=== PATIENT | female | born 1970 | race African-American/Black ===

== ENCOUNTER 2017-09-05 11:34 | Emergency (ER) | payer OTHER ==
[2017-09-05 12:31] LABS: ALT (SGPT) 13 U/L (8-55); AST (SGOT) 15 U/L (5-34); Albumin 4.7 g/dL (3.5-5.0); Alkaline Phosphatase 158 U/L (40-150); Anion Gap 15 mmol/L (10-20); BUN (Urea Nitrogen) 14 mg/dL (7.0-18.7); Bilirubin, Total 0.4 mg/dL (0.2-1.2); Calc. Creatinine Clearance 0 mL/min (70-130); Calcium 10.1 mg/dL (7.8-10.44); Carbon Dioxide 23 mmol/L (22-29); Chloride 105 mmol/L (98-107); Estimated GFR-MDRD 80; Globulin 3.7 g/dL (2.4-3.5); Glucose 99 mg/dL (70-105); Potassium 4.6 mmol/L (3.5-5.1); Protein, Total 8.4 g/dL (6.0-8.3); Sodium 138 mmol/L (136-145)
[2017-09-05 12:33] LABS: Band 2 % (5-11); Eosinophils 2 % (0-10); Hemoglobin 14.9 g/dL (12.0-16.0); Lymphocytes 60 % (21-51); MDiff Complete? YES; Mean Corpuscular HGB CONC 32.9 g/dL (32.0-36.0); Mean Corpuscular Volume 91.1 fl (81.0-99.0); Mean Platelet Volume 7.9 fL (7.4-10.4); Monocytes 5 % (0-10); Neutrophil 30 % (42-75); Platelet Count 322 thou/uL (130-400); RBC Morphology Normal; Red Blood Cell (RBC) Count 4.97 mill/uL (4.20-5.40); White Blood Cell (WBC) Count 8.1 thou/uL (4.8-10.8)
[2017-09-05 12:36] LABS: CKMB 0.8 ng/mL (0-6.6); Troponin I Less than 0.010 ng/mL (< 0.028)
[2017-09-05] MEDS ORDERED: Ondansetron ODT 4 MG TAB ONE (13:13)
[2017-09-05] MEDS ORDERED: Ketorolac Tromethamine 30 MG/ML VIAL ONE (13:13)
--- NOTE | 2017-09-05 13:23 | CT ---
CT BRAIN WITHOUT CONTRAST: History: Headache. Comparison: 04-15-13 FINDINGS: No hemorrhage or infarct. No midline shift or mass effect. Ventricular size and extraaxial CSF spaces are normal. No midline shift of mass effect. Paranasal sinuses and mastoids are clear. IMPRESSION: No acute intracranial abnormality. POS: [facility]
[2017-09-05] MEDS ORDERED: Metoclopramide 10 MG/10 ML UDCUP ONE (13:38)
[2017-09-05] MEDS ORDERED: diphenhydrAMINE 50 MG/ML VIAL ONE (13:38)
[2017-09-05] MEDS ORDERED: Acetaminophen 500 MG TAB ONE (13:38)
[2017-09-05] MEDS ORDERED: Metoclopramide HCl 10 MG/2 ML VIAL IVP SCH (14:00)
--- NOTE | 2017-09-05 14:02 | RAD ---
PORTABLE CHEST ONE VIEW: Date: 09-05-17 Time: 1:08 p.m. History: Headache, hypotension. FINDINGS: Comparison made with exam dated 01-03-17. The heart size is normal. The lungs are expanded without focal areas of consolidation, pneumothorax, or pleural effusions. IMPRESSION: No radiographic evidence of acute cardiopulmonary process. POS: [facility]
== END 2017-09-05 14:49 | disposition home or self-care (01) ==
LOC: ERS 11:34
DX: G43.909 Migraine, unspecified, not intractable, without status migrainosus (principal); I10 Essential (primary) hypertension; E78.5 Hyperlipidemia, unspecified; F32.9 Major depressive disorder, single episode, unspecified; F41.9 Anxiety disorder, unspecified; F17.210 Nicotine dependence, cigarettes, uncomplicated
CPT/HCPCS: 36415; 70450; 71045; 80053; 82553; 84484; 85025; 93005; 96365; 96375; J1200; J1885; J2765; Q0162

== ENCOUNTER 2017-09-16 13:18 | Emergency (ER) | payer OTHER ==
[~2017-09-16 13:18] MED LIST: ISOVUE-370 76%-LOCM 1 ML ONE
[2017-09-16 14:22] LABS: #Basophils 0.1 thou/uL (0.0-0.2); #Eosinphils 0.1 thou/uL (0.0-0.7); #Lymphocytes 4.2 thou/uL (1.20-3.40); #Monocytes 0.4 thou/uL (0.11-0.59); #Neutrophils 3.9 thou/uL (1.40-6.50); %Basophils 0.7 % (0.0-1.0); %Eosinophils 0.7 % (0.0-10.0); %Lymphocytes 48.6 % (21.0-51.0); %Monocytes 4.7 % (0.0-10.0); %Neutrophils 45.3 % (42.0-75.0); Hemoglobin 16.5 g/dL (12.0-16.0); Mean Corpuscular Hemoglobin 31.4 pg (27.0-31.0); Mean Corpuscular Volume 89.6 fl (81.0-99.0); Mean Platelet Volume 7.7 fL (7.4-10.4); Platelet Count 364 thou/uL (130-400); RBC Distribution Width 11.8 % (11.5-14.5); Red Blood Cell (RBC) Count 5.27 mill/uL (4.20-5.40); White Blood Cell (WBC) Count 8.5 thou/uL (4.8-10.8)
[2017-09-16 14:43] LABS: ALT (SGPT) 13 U/L (8-55); AST (SGOT) 16 U/L (5-34); Albumin 4.8 g/dL (3.5-5.0); Alkaline Phosphatase 162 U/L (40-150); Anion Gap 17 mmol/L (10-20); BUN (Urea Nitrogen) 12 mg/dL (7.0-18.7); Bilirubin, Total 0.6 mg/dL (0.2-1.2); Calc. Creatinine Clearance 0 mL/min (70-130); Calcium 10.3 mg/dL (7.8-10.44); Carbon Dioxide 23 mmol/L (22-29); Chloride 95 mmol/L (98-107); Estimated GFR-MDRD 63; Globulin 3.6 g/dL (2.4-3.5); Glucose 105 mg/dL (70-105); Lipase 10 U/L (8-78); Potassium 3.9 mmol/L (3.5-5.1); Protein, Total 8.4 g/dL (6.0-8.3); Sodium 131 mmol/L (136-145)
[2017-09-16 14:44] LABS: Troponin I Less than 0.010 ng/mL (< 0.028)
[2017-09-16] MEDS ORDERED: Ondansetron ODT 4 MG TAB ONE (14:55)
[2017-09-16] MEDS ORDERED: Morphine 4 MG/ML VIAL ONE (14:55)
--- NOTE | 2017-09-16 15:58 | CT ---
ABDOMEN AND PELVIC CT SCAN WITH IV CONTRAST: 09/16/17 HISTORY: 47-year-old female with history of abdominal pain with prior appendectomy and cholecystectomy and hys terectomy. Nausea and vomiting. Lung bases are clear. The liver, pancreas, spleen, are unremarkable. There is a 1.2 cm diameter left adrenal nodule, nonspecific, possibly an adenoma. No renal calculus or obstruction. No evidence of large or small bowel obstruction, free intraperitoneal air, or abnormal fluid collection. Occasional colonic diverticulosis without acute diverticulitis. Status post appendectomy, cholecystectomy and h ysterectomy. IMPRESSION: No significant acute process. Occasional colonic diverticulosis without acute diverticulitis. Not com pletely characterized small left adrenal nodule. POS: [facility]
== END 2017-09-16 16:48 | disposition home or self-care (01) ==
LOC: ERS 13:18
DX: R10.12 Left upper quadrant pain (principal); R10.11 Right upper quadrant pain; Z71.6 Tobacco abuse counseling; E78.5 Hyperlipidemia, unspecified; I10 Essential (primary) hypertension; F17.210 Nicotine dependence, cigarettes, uncomplicated
CPT/HCPCS: 36415; 74177; 80053; 82553; 83690; 84484; 85025; 93005; 96374; 99406; J2270; Q0162

== ENCOUNTER 2017-10-06 22:06 | Emergency (ER) | payer OTHER ==
[2017-10-06 22:37] LABS: #Basophils 0.1 thou/uL (0.0-0.2); #Eosinphils 0.2 thou/uL (0.0-0.7); #Lymphocytes 5.1 thou/uL (1.20-3.40); #Monocytes 0.6 thou/uL (0.11-0.59); #Neutrophils 6.8 thou/uL (1.40-6.50); %Basophils 0.9 % (0.0-1.0); %Eosinophils 1.5 % (0.0-10.0); %Lymphocytes 39.8 % (21.0-51.0); %Monocytes 4.9 % (0.0-10.0); Hemoglobin 14.3 g/dL (12.0-16.0); Mean Corpuscular HGB CONC 34.4 g/dL (32.0-36.0); Mean Corpuscular Hemoglobin 30.9 pg (27.0-31.0); Mean Corpuscular Volume 89.8 fl (81.0-99.0); Mean Platelet Volume 7.3 fL (7.4-10.4); Platelet Count 419 thou/uL (130-400); RBC Distribution Width 11.9 % (11.5-14.5); Red Blood Cell (RBC) Count 4.61 mill/uL (4.20-5.40); White Blood Cell (WBC) Count 12.7 thou/uL (4.8-10.8)
[2017-10-06 22:57] LABS: ALT (SGPT) 12 U/L (8-55); AST (SGOT) 10 U/L (5-34); Albumin 4.2 g/dL (3.5-5.0); Alkaline Phosphatase 154 U/L (40-150); Anion Gap 13 mmol/L (10-20); BUN (Urea Nitrogen) 7 mg/dL (7.0-18.7); Bilirubin, Total 0.4 mg/dL (0.2-1.2); CK (CPK) 71 U/L (29-168); Calc. Creatinine Clearance 0 mL/min (70-130); Calcium 9.7 mg/dL (7.8-10.44); Carbon Dioxide 23 mmol/L (22-29); Chloride 103 mmol/L (98-107); Estimated GFR-MDRD 82; Globulin 3.3 g/dL (2.4-3.5); Glucose 133 mg/dL (70-105); Potassium 3.5 mmol/L (3.5-5.1); Protein, Total 7.5 g/dL (6.0-8.3); Sodium 135 mmol/L (136-145)
--- NOTE | 2017-10-06 23:23 | RAD ---
TWO VIEW CHEST SERIES: INDICATIONS: Dizziness. Chest pain, new onset. COMPARISON: Comparing to 09/14/2015, no significant interval detrimental change. FINDINGS: There is no consolidation, effusion, or pneumothorax. The cardiac silhouette is within normal limits in size. IMPRESSION: No focal consolidation. POS: [facility]
[2017-10-07] MEDS ORDERED: Ondansetron ODT 8 MG TAB ONE (00:15)
[2017-10-07] MEDS ORDERED: Mag-Al 1200 mg/1200 mg/30 ML UDCUP ONE (00:17)
[2017-10-07] MEDS ORDERED: Lidocaine Viscous Sol 2% 15 ml UD Cup ONE (00:17)
[2017-10-07 00:34] LABS: CKMB 0.6 ng/mL (0-6.6); Troponin I Less than 0.010 ng/mL (< 0.028)
== END 2017-10-07 01:05 | disposition home or self-care (01) ==
LOC: ERS 22:06
DX: K29.00 Acute gastritis without bleeding (principal); E78.5 Hyperlipidemia, unspecified; I10 Essential (primary) hypertension; F41.9 Anxiety disorder, unspecified; F32.9 Major depressive disorder, single episode, unspecified; F17.210 Nicotine dependence, cigarettes, uncomplicated; J42 Unspecified chronic bronchitis
CPT/HCPCS: 36415; 71046; 80053; 82550; 82553; 83690; 84484; 85025; 93005; 99406

== ENCOUNTER 2019-05-18 16:52 | Emergency (ER) | payer OTHER, SELFPAY | END 2019-05-18 17:43 | disposition home or self-care (01) | LOC: ERS 16:52 | DX: J11.1 Influenza due to unidentified influenza virus with other respiratory manifestations (principal); E78.5 Hyperlipidemia, unspecified; E78.00 Pure hypercholesterolemia, unspecified; I10 Essential (primary) hypertension; J42 Unspecified chronic bronchitis; F17.210 Nicotine dependence, cigarettes, uncomplicated; Z79.899 Other long term (current) drug therapy | CPT/HCPCS: 99283 ==

== ENCOUNTER 2019-09-03 11:59 | Outpatient (CLI) | payer OTHER ==
--- NOTE | 2019-09-03 13:58 | MRI ---
MRI LUMBAR SPINE WITHOUT CONTRAST: INDICATION: History of lumbar radiculopathy. COMPARISON: None. FINDINGS: Bone marrow signal intensity appears within normal limits. Spinal alignment is within normal limits. No acute fracture is demonstrated. Visualized retroperitoneum demonstrates no lymphadenopathy or free fluid. At L5-S1, there is a broad-based disk bulge with a superimposed left paracentral protrusion. The pro trusion encroaches upon the left lateral recess without definite impingement of the traversing left S 1 nerve root. The broad-based disk bulge, facet hypertrophy, and loss of disk space height induce mi ld bilateral neural foraminal narrowing. At L4-5, there is mild broad-based bulge with facet hypertrophy inducing mild bilateral neural forami nal narrowing, right greater than left. At L3-4, there is a broad-based bulge with facet hypertrophy inducing mild neural foraminal encroachm ent. At L2-3, there is no appreciable central canal or neural foraminal narrowing. At L1-L2, there is no appreciable central canal or neural foraminal narrowing. IMPRESSION: 1. Broad-based disk bulge with superimposed left paracentral disk protrusion at L5-S1 inducing mild to moderate left lateral recess narrowing with encroachment upon the traversing left S1 nerve root wi thout definite impingement. 2. Mild bilateral neural foraminal narrowing at L3-4 through L5-S1. POS: [facility]
== END 2019-09-03 12:00 | disposition home or self-care (01) ==
LOC: BICMRI 11:59
PROVIDERS: ATTEND Neurological Surgery
DX: M54.16 Radiculopathy, lumbar region (principal); M51.27 Other intervertebral disc displacement, lumbosacral region; M48.061 Spinal stenosis, lumbar region without neurogenic claudication; M48.07 Spinal stenosis, lumbosacral region
CPT/HCPCS: 72148

== ENCOUNTER 2020-04-29 09:57 | Emergency (ER) | payer OTHER | END 2020-04-29 10:38 | disposition home or self-care (01) | LOC: ERS 09:57 | DX: K08.89 Other specified disorders of teeth and supporting structures (principal); E78.5 Hyperlipidemia, unspecified; E78.00 Pure hypercholesterolemia, unspecified; I10 Essential (primary) hypertension; F17.210 Nicotine dependence, cigarettes, uncomplicated; Z79.899 Other long term (current) drug therapy | CPT/HCPCS: 99282 ==

== ENCOUNTER 2021-10-29 08:17 | Emergency (ER) | payer SELFPAY | END 2021-10-29 09:48 | disposition home or self-care (01) | LOC: ERS 08:17 | DX: K04.7 Periapical abscess without sinus (principal); E78.5 Hyperlipidemia, unspecified; I10 Essential (primary) hypertension; F17.210 Nicotine dependence, cigarettes, uncomplicated | CPT/HCPCS: 99282 ==

== ENCOUNTER 2023-01-12 07:11 | Inpatient (IN) | payer SELFPAY ==
[2023-01-12 07:51] LABS: #Eosinphils 0.1 thou/uL (0.0-0.7); #Monocytes 0.5 thou/uL (0.11-0.59); #Neutrophils 4.5 thou/uL (1.40-6.50); %Basophils 0.5 % (0.0-1.0); %Eosinophils 1.1 % (0.0-10.0); %Lymphocytes 38.9 % (21.0-51.0); %Monocytes 5.4 % (0.0-10.0); Hematocrit 44.5 % (36.0-47.0); Hemoglobin 14.9 g/dL (12.0-16.0); Mean Corpuscular HGB CONC 33.5 g/dL (32.0-36.0); Mean Corpuscular Hemoglobin 31.6 pg (27.0-31.0); Mean Corpuscular Volume 94.3 fl (78.0-98.0); Mean Platelet Volume 10.4 fL (7.4-10.4); Platelet Count 276 10x3/uL (130-400); RBC Distribution Width 13.2 % (11.5-14.5); Red Blood Cell (RBC) Count 4.72 mill/uL (4.20-5.40); White Blood Cell (WBC) Count 8.3 10x3/uL (4.8-10.8)
[2023-01-12] MEDS ORDERED: Aspirin Chewable 81 MG TAB ONE (08:02)
[2023-01-12] MEDS ORDERED: Nitroglycerin 2% Ointment 1 INCH/1 GM Packet ONE (08:02)
[2023-01-12 08:29] LABS: ALT (SGPT) 17 U/L (8-55); AST (SGOT) 17 U/L (5-34); Albumin 4.3 g/dL (3.5-5.0); Alkaline Phosphatase 164 U/L (40-110); Anion Gap 14 mmol/L (10-20); BUN (Urea Nitrogen) 9 mg/dL (9.8-20.1); Bilirubin, Total 0.4 mg/dL (0.2-1.2); Calc. Creatinine Clearance 0 mL/min (70-130); Calcium 9.5 mg/dL (7.8-10.44); Carbon Dioxide 23 mmol/L (22-29); Chloride 107 mmol/L (98-107); Estimated GFR 73; Globulin 3.2 g/dL (2.4-3.5); Glucose 97 mg/dL (70-105); Lipase 15 U/L (8-78); Potassium 3.9 mmol/L (3.5-5.1); Protein, Total 7.5 g/dL (6.0-8.3); Sodium 140 mmol/L (136-145)
[2023-01-12 08:33] LABS: Troponin I Less than 0.010 ng/mL (< 0.028)
[2023-01-12] MEDS ORDERED: Ondansetron PF 4 MG/2 ML Vial IVP PRN (09:58)
[2023-01-12] MEDS ORDERED: Ondansetron ODT 4 MG TAB PO PRN (09:58)
[2023-01-12 11:16] LABS: Magnesium 2.1 mg/dL (1.6-2.6)
[2023-01-12 11:22] LABS: Troponin I Less than 0.010 ng/mL (< 0.028)
[2023-01-12] MEDS ORDERED: Acetaminophen 325 MG TAB ONE (11:52)
[2023-01-12] MEDS: Acetaminophen 325 MG TAB PO PRN ×2 (11:54→17:24)
[2023-01-12 15:01] LABS: Troponin I Less than 0.010 ng/mL (< 0.028)
[2023-01-12 16:50] VITALS: BMI 34.3
[2023-01-12] MEDS: Nicotine 14 MG PATCH TD SCH (17:25)
[2023-01-13 05:47] LABS: #Eosinphils 0.1 thou/uL (0.0-0.7); #Monocytes 0.5 thou/uL (0.11-0.59); #Neutrophils 3.4 thou/uL (1.40-6.50); %Basophils 0.4 % (0.0-1.0); %Eosinophils 1.4 % (0.0-10.0); %Lymphocytes 45.1 % (21.0-51.0); Hematocrit 43.9 % (36.0-47.0); Hemoglobin 14.2 g/dL (12.0-16.0); Mean Corpuscular HGB CONC 32.3 g/dL (32.0-36.0); Mean Corpuscular Volume 95.9 fl (78.0-98.0); Mean Platelet Volume 10.9 fL (7.4-10.4); Platelet Count 260 10x3/uL (130-400); Red Blood Cell (RBC) Count 4.58 mill/uL (4.20-5.40); White Blood Cell (WBC) Count 7.3 10x3/uL (4.8-10.8)
[2023-01-13 06:11] LABS: Anion Gap 14 mmol/L (10-20); BUN (Urea Nitrogen) 10 mg/dL (9.8-20.1); Calc. Creatinine Clearance 133 mL/min (70-130); Calcium 9.4 mg/dL (7.8-10.44); Carbon Dioxide 22 mmol/L (22-29); Cardiac Risk 5.8 (Less than 4.5); Chloride 105 mmol/L (98-107); Cholesterol 185 mg/dl (< 200 Desired); Estimated GFR 80; Glucose 100 mg/dL (70-105); HDL Cholesterol 32 mg/dL (>60 Neg Risk); LDL Cholesterol, Calculated 119 mg/dL; Sodium 137 mmol/L (136-145); Triglycerides 169 mg/dL (Less than 150)
[2023-01-13] MEDS: Nicotine 14 MG PATCH TD SCH (12:03)
[2023-01-13] MEDS: Aspirin Chewable 81 MG TAB PO SCH (12:03)
[2023-01-13] MEDS ORDERED: Regadenoson 0.4 MG/5 ML SYRINGE ONE (12:51)
[2023-01-13] MEDS ORDERED: Amlodipine 5 MG TAB PO SCH (15:00)
[2023-01-14 06:23] LABS: #Eosinphils 0.1 thou/uL (0.0-0.7); #Monocytes 0.6 thou/uL (0.11-0.59); #Neutrophils 3.9 thou/uL (1.40-6.50); %Basophils 0.4 % (0.0-1.0); %Eosinophils 1.7 % (0.0-10.0); %Lymphocytes 41.9 % (21.0-51.0); %Monocytes 6.9 % (0.0-10.0); Hematocrit 43.5 % (36.0-47.0); Hemoglobin 14.1 g/dL (12.0-16.0); Mean Corpuscular HGB CONC 32.4 g/dL (32.0-36.0); Mean Corpuscular Hemoglobin 31.3 pg (27.0-31.0); Mean Corpuscular Volume 96.5 fl (78.0-98.0); Mean Platelet Volume 10.9 fL (7.4-10.4); Platelet Count 279 10x3/uL (130-400); Red Blood Cell (RBC) Count 4.51 mill/uL (4.20-5.40)
[2023-01-14 06:44] LABS: Anion Gap 13 mmol/L (10-20); BUN (Urea Nitrogen) 10 mg/dL (9.8-20.1); Calc. Creatinine Clearance 126 mL/min (70-130); Calcium 9.3 mg/dL (7.8-10.44); Carbon Dioxide 25 mmol/L (22-29); Chloride 104 mmol/L (98-107); Estimated GFR 74; Glucose 101 mg/dL (70-105); Potassium 3.8 mmol/L (3.5-5.1); Sodium 138 mmol/L (136-145)
[2023-01-14] MEDS: Aspirin Chewable 81 MG TAB PO SCH (08:41)
[2023-01-14] MEDS ORDERED: Amlodipine 5 MG TAB PO SCH ×2 (09:00→14:00)
[2023-01-14 11:25] VITALS: BP 143/98; TEMP 97.9
[2023-01-14] MEDS: Nicotine 14 MG PATCH TD SCH (11:48)
[2023-01-14] MEDS ORDERED: Hydrochlorothiazide 25 MG TAB PO SCH (14:00)
== END 2023-01-14 14:38 | disposition home or self-care (01) | DRG 305 ==
LOC: ERS 07:11 → ERHOLD 09:55 → 2SW 15:50 → OBSVTOIN 01-13 14:38
PROVIDERS: ADMIT Family Medicine; ATTEND Family Medicine
DX: I10 Essential (primary) hypertension (principal); R07.9 Chest pain, unspecified; E78.5 Hyperlipidemia, unspecified; E66.01 Morbid (severe) obesity due to excess calories; F17.210 Nicotine dependence, cigarettes, uncomplicated; Z88.8 Allergy status to other drugs, medicaments and biological substances; Z91.012 Allergy to eggs; Z71.6 Tobacco abuse counseling; Z79.899 Other long term (current) drug therapy; Z68.34 Body mass index [BMI] 34.0-34.9, adult; Z91.148 Patient's other noncompliance with medication regimen for other reason; Z90.49 Acquired absence of other specified parts of digestive tract; Z90.710 Acquired absence of both cervix and uterus
CPT/HCPCS: 36415; 71045; 78452; 80048; 80053; 80061; 83690; 83735; 84443; 84484; 85025; 93005; 93017; 93306; 94760; A9500; J1650; J2785

== ENCOUNTER 2023-07-27 09:49 | Emergency (ER) | payer SELFPAY ==
[2023-07-27] MEDS ORDERED: Cyclobenzaprine 10 MG TAB ONE (11:26)
[2023-07-27] MEDS ORDERED: Ketorolac Tromethamine 30 MG (1 mL) VIAL ONE (11:26)
[2023-07-27] MEDS ORDERED: predniSONE 20 MG TAB ONE (11:27)
[2023-07-27] MEDS ORDERED: Lidocaine 4% Patch TP SCH (12:00)
[2023-07-27] MEDS ORDERED: LIDOCAINE Patch Removal TOP SCH (23:59)
== END 2023-07-27 12:58 | disposition home or self-care (01) ==
LOC: ERS 09:49
DX: M25.511 Pain in right shoulder (principal); M54.12 Radiculopathy, cervical region; I10 Essential (primary) hypertension; F17.210 Nicotine dependence, cigarettes, uncomplicated; Z55.6 Problems related to health literacy
CPT/HCPCS: 72040; 96372; J1885; J7512